=== PATIENT | female | born 1975 | race Hispanic/Latino ===

== ENCOUNTER 2017-05-07 16:54 | Emergency (ER) | payer OTHER ==
[~2017-05-07] VITALS: Ht 162.6 cm; Wt 103.2 kg
[~2017-05-07 16:54] MED LIST: FERR-83 PO
[2017-05-07 16:55] VITALS: BP 172/102; PULSE 89; RESP 16; O2SAT 96
--- NOTE | 2017-05-07 17:11 | ED.REPORT ---
HPI-Chest Pain 40 and Over Date of Service May 07, 2017 ED Provider: Dr. Forrest Munguia The patient is a 42 year old female w/ a hx of panic attacks who presents to the ED c/o of an episode of sudden onset chest pain while driving an hour prior to arrival. Associated symptoms include diaphoresis, nausea, white hands, shaking, and shortness of breath. At the ED she still feels slight chest pressure but much less then before. She has had an episode like this previously but this time was much more severe. She denies vomiting, fever, LOC, weakness, numbness, or any other symptoms. Nothing makes the pain better or worse. Nursing Notes Stated Complaint: ANXIETY Chief Complaint: Chest Pain Nursing Notes Reviewed: Yes (Ky[employer] not reconciled) Allergies: Coded Allergies: No Known Allergies (Verified , 05/07/17) Scheduled Ferrous Sulfate (Ferrous Sulfate) 325 Mg Tablet 650 MG PO BID Scheduled PRN Lorazepam (Lorazepam) 0.5 Mg Tablet 0.5 MG PO BID PRN PRN For Anxiety General Time Seen by MD: 17:10 Chief Complaint Chest pain Hx Obtained From: Patient Arrived By: Walk-in Sudden in Onset?: Yes Onset Occurred: 1 - 4 hours ago Symptom Duration: Since onset Location: : Chest right Quality: Painful Severity: Current: Mild Severity: Maximum: Moderate Recent Healthcare: No recent doctor visit, No recent hospitalization Similar Sx Previous: No Past Medical History Past Medical History Notes: Not on daily medications Past Medical History Endometriosis Anxiety Denies DVT or PE. Past Surgical History Reports: Hysterectomy Reports: Tubal ligation Family History Mother has heart issues, denies CHF, heart surgery. Not up to date on fathers medical issues. 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 Ambulatory Status Independent Review of Systems Constitutional: Denies: Fever Respiratory: Reports: Shortness of breath Cardiovascular: Reports: Chest pain GI: Reports: Nausea, Denies: Mucousy stool, Vomiting Neurologic: Denies: Change LOC, Numbness, Syncope Psychiatric: Reports: Anxiety Complete sys rev & neg: except as marked. Physical Exam Initial Vital Signs Vital Signs (First) Date Time Temp Pulse Resp B/P Pulse Ox O2 Delivery O2 Flow Rate FiO2 05/07/17 16:55 36.4 89 16 172/102 96 Room Air Initial VS: Reviewed, Vital signs abnormal (HTN) General/Constitutional: Awake, Alert, Cooperative Respiratory / Chest: Atraumatic, Breath sounds NL, Breath sounds = bilat Cardiovascular: Heart rate NL, Regular rhythm, Heart sounds NL Abdomen: Atraumatic, Soft, Non-tender Neck: Atraumatic, Supple, Non-tender Lower Extremity / Pelvis / MS: Atraumatic, Full range of motion, No deformity Skin: Atraumatic, Color NL, No rash Upper Extremity / MS: Atraumatic, Full range of motion, No deformity Wrist / Hand: Atraumatic, Full range of motion, No deformity Ankle / Foot: Atraumatic, Full range of motion, No deformity Interpretation & Diagnostics Lab Results Interpretation Result Diagram: 05/07/17 1736 05/07/17 1736 Test 05/07/17 17:36 White Blood Count 6.7th/mm3 (3.8-10.1) Red Blood Count 4.73mil/mm3 (3.90-5.20) Hemoglobin 14.5g/dL (12.0-15.6) Hematocrit 42.7% (35.0-46.0) Mean Corpuscular Volume 90.3fL (81-100) Mean Corpuscular Hemoglobin 30.7pg (27.0-35.0) Mean Corpuscular Hemoglobin Concent 34.0% (32.0-37.0) Red Cell Distribution Width 14.1% (12.3-15.4) Platelet Count 198bil/L (150-400) Neutrophils (%) (Auto) 66.5% (40-74) Lymphocytes (%) (Auto) 21.8% (14-46) Monocytes (%) (Auto) 8.6% (4-12) Eosinophils (%) (Auto) 2.7% (0-5) Basophils (%) (Auto) 0.1% (0-3) Sodium Level 142mEq/L (134-144) Potassium Level 3.7mEq/L (3.5-5.2) Chloride Level 106mEq/L (97-108) Carbon Dioxide Level 23mmol/L (18-29) Blood Urea Nitrogen 17mg/dL (6-24) Creatinine 0.79mg/dL (0.57-1.00) Estimat Glomerular Filtration Rate 114mL/min (>59) Glucose Level 107mg/dL (60-99) Calcium Level 8.7mg/dL (8.5-10.1) Magnesium Level 2.1mg/dL (1.6-2.6) Total Bilirubin 0.6mg/dL (0.0-1.2) Aspartate Amino Transf (AST/SGOT) 54U/L (0-50) Alanine Aminotransferase (ALT/SGPT) 22U/L (0-32) Alkaline Phosphatase 87U/L (25-150) Troponin T < 0.010ug/L (0.0-0.011) Total Protein 6.9g/dL (6.4-8.4) Albumin 4.1g/dL (3.4-5.0) Lab Results Interpretation: CBC normal ECG Interpretation ECG Interpretation: No acute abnormalities No interval changes when compared 2013 Time: 17:15 Interpreted by: ED physician Normal ECG Interpretation: Normal sinus rhythm (rate 71) Re-Eval/Medical Decision Med Decision/Clinical Course This is a 42-year-old female presents with a one-hour episode of severe chest pressure tightness, diaphoresis and nausea that she is quite certain is a severe anxiety attack. She has had intermittent anxiety attacks over the years , but reports this was more severe than others. She was last seen for an episode of chest discomfort, possible anxiety in August 2014. She is not aware of any overt cardiac risk factors other than possible family history of the mother who "nitroglycerin". Does report being under lots of stress. Pursue simply driving along when this occurred. Symptoms mostly resolved on arrival here. EKG is unchanged without ischemic changes. Initial labs and chest x-ray been ordered. And a dose of lorazepam is being given. Patient does have some features that certainly argue for the possibility of anxiety, but describes enough features that I think EKG and 2 sets of enzymes are warranted. The patient is being turned oncoming provider change of shift over to recheck pending a rechekc Source of Hx: Old records Time of Eval: 17:37 Re-Evaluation/Progress Note: Pt rechecked. Informed pt of normal EKG and chest x-ray. Plan to wait for bloodwork and lab results. Pt again states that she thinks that her symptoms are caused by anxiety. Differential Diagnosis: Positive: Anxiety disorder, Negative: Esophageal rupture, Gun shot wound chest, Pneumonia, Pneumothorax, Pulmonary edema, Pulmonary embolism, Rib fracture, Stab wound chest Counseled Regarding: Diagnosis, Lab results, Need for follow-up, When/why to return to ED Discharge & Departure Primary Impression: Anxiety Additional Impression: Chest pain Disposition: Home Discharge Condition All VS Reviewed: Yes Condition: Stable Patient Instructions: Anxiety (ED) Referrals: Karol Venegas MD (PCP) Scribe Attestation Portion of this note were transcribed by Bambi Parrish. I, Dr. Munguia, personally performed the history, physical exam, and medical decision-making: I reviewed and confirmed the accuracy for the information in the transcribed note. Signed by: adithya Wyatt, 05/07/17 1800 copies to: Karol Venegas MD, Matthew F MD May 07, 2017 17:11 Bambi Parrish May 07, 2017 17:21
[2017-05-07 17:41] LABS: BASOPHILS % (AUTO) 0.1 % (0-3); EOSINOPHILS % (AUTO) 2.7 % (0-5); MONOCYTES % (AUTO) 8.6 % (4-12); Mean Corpuscular Hemoglobin 30.7 pg (27.0-35.0); Mean Corpuscular Volume 90.3 fL (81-100); NEUTROPHILS % (AUTO) 66.5 % (40-74); Platelet Count 198 bil/L (150-400)
--- NOTE | 2017-05-07 17:49 | DRSVH ---
PROCEDURE: X-RAY CHEST ONE VIEW, PORTABLE ([id number]) INDICATIONS: 42 year-old female with left chest pain. TECHNIQUE: One view of the chest was acquired. COMPARISON: [facility], , CHEST 1VW (PORTABLE), 08/27/2014, 5:56. FINDINGS: Surgical changes and devices: None. Lungs and pleura: No pleural effusions or pneumothorax. Lungs are clear. Mediastinum: Mediastinal contours appear normal. Heart size is normal given AP technique. Bones and chest wall: No suspicious bony lesions. Overlying soft tissues appear unremarkable. IMPRESSION: No acute cardiopulmonary disease. Dictated by: Kadeem Cunningham M.D. on 05/07/2017 at 17:46 Approved by: Kadeem Cunningham M.D. on 05/07/2017 at 17:47
[2017-05-07 18:03] LABS: TROPONIN T < 0.010 ug/L (0.0-0.011)
[2017-05-07 18:12] LABS: Magnesium 2.1 mg/dL (1.6-2.6)
[2017-05-07 18:15] VITALS: BP 147/54; PULSE 70; RESP 15; O2SAT 99
[2017-05-07] MEDS ORDERED: LORA0.5T PO (18:27)
[2017-05-07 19:44] VITALS: BP 139/78; PULSE 75; RESP 20; O2SAT 97
[2017-05-07 20:46] VITALS: BP 139/78; PULSE 75; RESP 20; O2SAT 97
== END 2017-05-07 20:50 | disposition home or self-care (01) ==
LOC: SED 16:54
DX: F41.0 Panic disorder [episodic paroxysmal anxiety] (principal); R07.89 Other chest pain
CPT/HCPCS: 36415; 71010; 80053; 83735; 84484; 85025; 93005; 96374; 99285; J2060